=== PATIENT | female | born 1975 | race Caucasian/White ===

== ENCOUNTER 2017-07-04 19:29 | Emergency (ER) | payer SELFPAY ==
[~2017-07-04] VITALS: Ht 177.8 cm; Wt 97.0 kg
[2017-07-04 19:32] VITALS: BP 130/93; PULSE 102; RESP 16; TEMP 98.5; O2SAT 100
[2017-07-04] MEDS ORDERED: SODIUM CHLOR 0.9% 1000 ML INJ 1,000 ML IV ONE (21:00)
[2017-07-04] MEDS ORDERED: SODIUM CHLORIDE 0.9% FLUSH 10 ML FLUSH IV FLUSH PRN (21:00)
[2017-07-04] MEDS ORDERED: VANCOMYCIN INJ 1,000 MG in SODIUM CHLOR 0.9% 250 ML INJ 250 ML IV ONE (21:00)
[2017-07-04] MEDS ORDERED: METOCLOPRAMIDE HCL 10 MG/2 ML VIAL IV PUSH ONE (21:00)
[2017-07-04] MEDS ORDERED: KETOROLAC TROMETHAMINE 30 MG/ML (IVP) VIAL IV PUSH ONE (21:00)
--- NOTE | 2017-07-04 21:04 | PD ---
HPI Chief Complaint: Headache Time Seen by Provider: 20:52 Travel History International Travel<30 days: No Contact w/Intl Traveler<30days: No Traveled to known affect area: No History of Present Illness HPI 41-year-old female here for evaluation of left eye infection and headache. The patient reports that she accidentally burned her left medial thigh with a cigarette about a week ago. The area of blistered. For the last 4 days she has been having warmth, erythema, and tenderness to the area. She denies fevers or chills. Today she developed a headache. Headache started this morning and has gradually worsened. Pain is left retro-orbital, described as pressure. She is having some phonophobia as well as nausea. No photophobia. No vomiting. No visual disturbances. No neck pain or stiffness. No history of IVDU. Patient reports having had a migraine several years ago. PFSH Past Medical History ?: Not Past Surgical History Surgical History: No Previous Surgery Appendectomy: Yes Cholecystectomy: Yes Other Surgery: Yes (OVARIES REMOVED ) Social History Alcohol Use: No Tobacco Use: Yes (1/2 PACK A DAY ) Substance Use: No Allergies-Medications (Allergen,Severity, Reaction): Coded Allergies: tetracycline (Verified Allergy, Mild, 07/04/17) Review of Systems Except as stated in HPI: all other systems reviewed are Neg Physical Exam Narrative GENERAL: Well-developed, well-nourished, comfortable, no apparent distress. SKIN: Left mid/anterior/medial thigh with 5 cm circular area of erythema with underlying induration, no fluctuance. This area was evaluated using a bedside linear ultrasound probe in shows cobblestoning which is consistent with cellulitis, no drainable fluid collection. There are no streaks. No crepitus. HEAD: Atraumatic. Normocephalic. EYES: Pupils equal, round, 3 mm, reactive to light. EOMI. No scleral icterus. No injection or drainage. ENT: Mucous membranes pink and moist. NECK: Trachea midline. No JVD. No nuchal rigidity. CARDIOVASCULAR: Regular rate and rhythm. RESPIRATORY: No accessory muscle use. Clear to auscultation. Breath sounds equal bilaterally. GASTROINTESTINAL: Abdomen soft, non-tender, nondistended. MUSCULOSKELETAL: Skin exam as above. No obvious deformities. No clubbing. No cyanosis. No edema. NEUROLOGICAL: Awake and alert. No obvious cranial nerve deficits. Motor grossly within normal limits. Normal speech. PSYCHIATRIC: Appropriate mood and affect; insight and judgment normal. Data Data Last Documented VS Vital Signs Date Time Temp Pulse Resp B/P (MAP) Pulse Ox O2 Delivery O2 Flow Rate FiO2 07/04/17 23:36 91 109/64 (79) 98 Room Air 07/04/17 19:32 98.5 16 Orders Orders Complete Blood Count With Diff (07/04/17 21:00) Comprehensive Metabolic Panel (07/04/17 21:00) Iv Access Insert/Monitor (07/04/17 21:00) Ecg Monitoring (07/04/17 21:00) Oximetry (07/04/17 21:00) Sodium Chloride 0.9% Flush (Ns Flush) (07/04/17 21:00) Ketorolac Inj (Toradol Inj) (07/04/17 21:00) Metoclopramide Inj (Reglan Inj) (07/04/17 21:00) Sodium Chlor 0.9% 1000 Ml Inj (Ns 1000 M (07/04/17 21:00) Vancomycin Inj (Vancomycin Inj) (07/04/17 21:00) Morphine Inj (Morphine Inj) (07/04/17 23:45) Prothrombin Time / Inr (Pt) (07/04/17 23:33) Act Partial Throm Time (Ptt) (07/04/17 23:33) Labs Laboratory Tests Test 07/04/17 21:46 07/04/17 23:36 White Blood Count 12.2 TH/MM3 Red Blood Count 5.32 MIL/MM3 Hemoglobin 14.9 GM/DL Hematocrit 43.9 % Mean Corpuscular Volume 82.5 FL Mean Corpuscular Hemoglobin 27.9 PG Mean Corpuscular Hemoglobin Concent 33.8 % Red Cell Distribution Width 13.9 % Platelet Count 202 TH/MM3 Mean Platelet Volume 9.0 FL Neutrophils (%) (Auto) 59.8 % Lymphocytes (%) (Auto) 32.6 % Monocytes (%) (Auto) 4.2 % Eosinophils (%) (Auto) 2.4 % Basophils (%) (Auto) 1.0 % Neutrophils # (Auto) 7.3 TH/MM3 Lymphocytes # (Auto) 4.0 TH/MM3 Monocytes # (Auto) 0.5 TH/MM3 Eosinophils # (Auto) 0.3 TH/MM3 Basophils # (Auto) 0.1 TH/MM3 CBC Comment DIFF FINAL Differential Comment Blood Urea Nitrogen 10 MG/DL Creatinine 0.82 MG/DL Random Glucose 88 MG/DL Total Protein 8.7 GM/DL Albumin 3.8 GM/DL Calcium Level 9.0 MG/DL Alkaline Phosphatase 112 U/L Aspartate Amino Transf (AST/SGOT) 50 U/L Alanine Aminotransferase (ALT/SGPT) 75 U/L Total Bilirubin 0.4 MG/DL Sodium Level 135 MEQ/L Potassium Level 4.1 MEQ/L Chloride Level 102 MEQ/L Carbon Dioxide Level 27.0 MEQ/L Anion Gap 6 MEQ/L Estimat Glomerular Filtration Rate 76 ML/MIN Prothrombin Time 10.4 SEC Prothromb Time International Ratio 1.0 RATIO Activated Partial Thromboplast Time 26.3 SEC [facility] Medical Decision Making Medical Screen Exam Complete: Yes Emergency Medical Condition: Yes Differential Diagnosis Cellulitis, tension headache, cluster headache, migraine headache, meningitis/ encephalitis/SAH unlikely Narrative Course Initial vital signs show heart rate 102, blood pressure 130/93, pulse ox 100% on room air, oral temp of 98.5F. CBC: WBC 12.2, hemoglobin 14.9, hematocrit 43.9, platelets 202. CMP is remarkable for AST 50, ALT 75, otherwise unremarkable. Patient reports history of fatty liver disease. Patient was given IV Toradol, IV Reglan, and a dose of IV vancomycin. On reassessment at approximately 11:00 PM the patient complains of worsening headache. CT head will be ordered, and the patient will be given a dose of morphine. Patient was given 4 mg of IV morphine and shortly afterwards reported significant improvement in headache. She is declining CT head. I discussed with her that I cannot rule out SAH/meningitis/encephalitis without performing CT and LP. She states she feels a lot better and would like to be discharged home. There is no nuchal rigidity on exam. She does have cellulitis to her left thigh and will be started on Bactrim and Keflex for this. She was advised to follow-up with a primary care physician this week. She was informed on when to return to the emergency department. I told her to return to the emergency department in 48 hours for a wound check. She verbalizes understanding and agreement with plan. Procedures Procedure Narrative Bedside skin ultrasound: Using the linear ultrasound probe, the area of erythema to the patient's left mid/anterior/medial thigh was evaluated. They show cobblestoning which is consistent with cellulitis. There were no drainable fluid collections. Diagnosis Primary Impression: Cellulitis of left thigh Additional Impression: Cephalgia Qualified Codes: R51 - Headache Referrals: [facility] 3 days Primary Care Physician 3 days Additional Instructions: Follow-up with a primary care physician this week. Take antibiotics as prescribed. Return to the emergency department for worsening symptoms or any other concerns. Scripts Cephalexin (Keflex) 500 Mg Cap 500 MG PO Q8H for Infection, #30 CAP 0 Refills Prov: Hebert Glaser MD 07/05/17 Sulfamethoxazole-Trimethoprim (Bactrim DS) 800-160 Mg Tab 1 TAB PO BID for Infection, #20 TAB 0 Refills Prov: Hebert Glaser MD 07/05/17 Disposition: 01 DISCHARGE HOME Condition: Stable Hebert Glaser MD Jul 04, 2017 21:04
[2017-07-04 22:20] LABS: AUTOMATED NEUTROPHIL # 7.3 TH/MM3 (1.8-7.7); BASOPHIL # 0.1 TH/MM3 (0-0.2); EOSINOPHIL # 0.3 TH/MM3 (0-0.4); EOSINOPHIL % 2.4 % (0.0-4.0); HEMATOCRIT 43.9 % (35.0-46.0); HEMO FLAGS DIFF FINAL; LYMPH % 32.6 % (9.0-44.0); MEAN CELL VOLUME 82.5 FL (80.0-100.0); MEAN CORPUSCULAR HEMOGLOBIN 27.9 PG (27.0-34.0); MEAN CORPUSCULAR HGB CONC 33.8 % (32.0-36.0); MONO % 4.2 % (0.0-8.0); NEUT % 59.8 % (16.0-70.0); PLATELET COUNT 202 TH/MM3 (150-450); RED BLOOD COUNT 5.32 MIL/MM3 (4.00-5.30); RED CELL DISTRIBUTION WIDTH 13.9 % (11.6-17.2); WHITE BLOOD COUNT 12.2 TH/MM3 (4.0-11.0)
[2017-07-04 22:43] LABS: ALT (GPT) 75 U/L (10-53); ANION GAP 6 MEQ/L (5-15); AST (GOT) 50 U/L (15-37); BLOOD UREA NITROGEN 10 MG/DL (7-18); CHLORIDE 102 MEQ/L (98-107); GLOMERULAR FILTRATION RATE 76 ML/MIN (>89); POTASSIUM 4.1 MEQ/L (3.5-5.1); SODIUM (NA) 135 MEQ/L (136-145)
[2017-07-04 22:45] LABS: ALKALINE PHOSPHATASE 112 U/L (45-117); TOTAL BILIRUBIN ADULT 0.4 MG/DL (0.2-1.0)
[2017-07-04 23:36] VITALS: BP 109/64; PULSE 91; O2SAT 98
[2017-07-04] MEDS ORDERED: MORPHINE SULFATE 4 MG/ML INJ IV PUSH ONE (23:45)
[2017-07-05 00:26] LABS: APTT (PATIENT) 26.3 SEC (24.3-30.1); PROTHROMBIN TIME - PATIENT 10.4 SEC (9.8-11.6)
[2017-07-05] MEDS ORDERED: BACT800T5 PO (00:29)
[2017-07-05] MEDS ORDERED: CEPH-460 PO (00:29)
== END 2017-07-05 01:05 | disposition home or self-care (01) ==
LOC: NEPD 19:29
DX: L03.116 Cellulitis of left lower limb (principal); R51 Headache; F17.200 Nicotine dependence, unspecified, uncomplicated
CPT/HCPCS: 80053; 85025; 85610; 85730; 96365; 96375; 99285; J1885; J2270; J2765; J3370; J7030; J7050

== ENCOUNTER 2017-07-08 19:57 | Emergency (ER) | payer SELFPAY ==
[~2017-07-08] VITALS: Ht 177.8 cm; Wt 93.8 kg
[~2017-07-08 19:57] MED LIST: BACT800T5 PO; CEPH-460 PO
[2017-07-08 20:03] VITALS: BP 128/86; PULSE 101; RESP 18; TEMP 97.9; O2SAT 98
--- NOTE | 2017-07-08 20:47 | PD ---
HPI Chief Complaint: Skin Problem Time Seen by Provider: 20:33 Travel History International Travel<30 days: No Contact w/Intl Traveler<30days: No Traveled to known affect area: No History of Present Illness HPI 41-year-old female here for evaluation of a wound check. I evaluated the patient on 07/04/17 for left thigh cellulitis. The patient was prescribed Bactrim and Keflex at that time which she has been taking. She has also been applying warm compresses. She believes that the wound has come to a head and may need to be drained today. She denies fevers or chills. She believes that the area of cellulitis has been improving. PFSH Past Medical History Tetanus Vaccination: > 5 Years Influenza Vaccination: No ?: Not Past Surgical History Appendectomy: Yes Cholecystectomy: Yes Other Surgery: Yes (OVARIES REMOVED ) Social History Alcohol Use: No Tobacco Use: Yes (1/2 PACK A DAY ) Substance Use: No Allergies-Medications (Allergen,Severity, Reaction): Coded Allergies: sumatriptan (Verified Allergy, Severe, Anaphylaxis, 07/08/17) tetracycline (Verified Allergy, Mild, 07/08/17) Reported Meds & Prescriptions Reported Meds & Active Scripts Active Keflex (Cephalexin) 500 Mg Cap 500 Mg PO Q8H Bactrim DS (Sulfamethoxazole-Trimethoprim) 800-160 Mg Tab 1 Tab PO BID Review of Systems Except as stated in HPI: all other systems reviewed are Neg Physical Exam Narrative GENERAL: Well-developed, well-nourished, comfortable, no apparent distress. SKIN: Left medial thigh with 4 x 4 centimeter area of induration with overlying erythema and warmth. There is no fluctuance. No crepitus. No red streaks. This area was evaluated using a bedside ultrasound probe in shows cobblestoning which is suggestive of cellulitis. There are no drainable fluid collections. PSYCHIATRIC: Appropriate mood and affect; insight and judgment normal. Data Data Last Documented VS Vital Signs Date Time Temp Pulse Resp B/P (MAP) Pulse Ox O2 Delivery O2 Flow Rate FiO2 07/08/17 20:03 97.9 101 18 128/86 (100) 98 MDM Medical Decision Making Medical Screen Exam Complete: Yes Emergency Medical Condition: Yes Differential Diagnosis Cellulitis, abscess Narrative Course This a 41-year-old female who I evaluated on 07/04/17 for left thigh cellulitis , started on Bactrim and Keflex at that time, here for evaluation because she believes that the wound may not be an abscess and may need to be drained. The area of cellulitis has significantly improved. It was about 5 x 5 cm, and is now less than 4 x 4 centimeters. There is diffuse induration. There is no fluctuance, crepitus, or red streaks. Bedside ultrasound shows cobblestoning which is indicative of cellulitis. There are no drainable fluid collections. I discussed this with the patient, and have advised against attempting to incise and drain the wound today as I do not believe that any purulence will be expressed. I have advised that the patient continue warm soaks and continue taking the antibiotics. She was advised when to return to the emergency department. She verbalizes understanding and agreement with plan. Diagnosis Primary Impression: Visit for wound check Additional Impression: Cellulitis of left thigh Referrals: Primary Care Physician 3 days Additional Instructions: Continue taking antibiotics as prescribed. Continue applying warm soaks. Return to the emergency department for worsening symptoms or any other concerns. Disposition: 01 DISCHARGE HOME Condition: Stable Hebert Glaser MD Jul 08, 2017 20:47
== END 2017-07-08 20:52 | disposition home or self-care (01) ==
LOC: PHEFT 19:57
DX: L03.116 Cellulitis of left lower limb (principal); F17.200 Nicotine dependence, unspecified, uncomplicated
CPT/HCPCS: 99284